=== PATIENT | female | born 1985 | race Two or more races ===

== ENCOUNTER 2018-08-13 15:00 | Inpatient (IN) | payer OTHER ==
[~2018-08-13] VITALS: Ht 157.5 cm; Wt 108.0 kg
[2018-08-16] MEDS ORDERED: PRENATAL ONE T1 EACH PO (04:28)
[2018-08-16] MEDS ORDERED: FOLIC ACID1 MG PO (04:29)
== END 2018-08-18 13:21 | disposition home or self-care (01) | DRG 807 ==
LOC: LDR 08-16 07:18 → OB/GYN 08-16 07:18
PROVIDERS: ADMIT Obstetrics & Gynecology
PROC: 10E0XZZ Delivery of Products of Conception, External Approach (ICD-10-PCS; principal; 2018-08-16)
PROC: 4A1HXCZ Monitoring of Products of Conception, Cardiac Rate, External Approach (ICD-10-PCS; 2018-08-16)
PROC: 0UQMXZZ Repair Vulva, External Approach (ICD-10-PCS; 2018-08-16)
PROC: 4A033R1 Measurement of Arterial Saturation, Peripheral, Percutaneous Approach (ICD-10-PCS; 2018-08-16)
DX: O71.82 Other specified trauma to perineum and vulva (principal); Z37.0 Single live birth; O24.410 Gestational diabetes mellitus in pregnancy, diet controlled; Z3A.37 37 weeks gestation of pregnancy

== ENCOUNTER 2018-08-16 03:02 | Outpatient (CLI) | payer OTHER ==
[2018-08-16] MEDS ORDERED: PRENATAL ONE T1 EACH PO (04:28)
[2018-08-16] MEDS ORDERED: FOLIC ACID1 MG PO (04:29)
== END 2018-08-16 07:17 | disposition still patient (30) ==
LOC: OBS/DEL 03:02
DX: O47.1 False labor at or after 37 completed weeks of gestation (principal); Z34.03 Encounter for supervision of normal first pregnancy, third trimester

== ENCOUNTER 2018-08-22 15:01 | Outpatient (CLI) | payer OTHER ==
[~2018-08-22 15:01] MED LIST: FOLIC ACID1 MG PO; PRENATAL ONE T1 EACH PO
== END 2018-08-22 15:09 | disposition home or self-care (01) ==
LOC: RAD 15:01
DX: S69.92XA Unspecified injury of left wrist, hand and finger(s), initial encounter (principal)

== ENCOUNTER 2021-09-22 09:21 | Outpatient (CLI) | payer OTHER | END 2021-09-22 10:56 | disposition home or self-care (01) | LOC: PRENATAL 09:21 | PROVIDERS: ATTEND Obstetrics & Gynecology Maternal & Fetal Medicine | DX: O35.0XX0 Maternal care for (suspected) central nervous system malformation in fetus, not applicable or unspecified (principal); O09.212 Supervision of pregnancy with history of pre-term labor, second trimester; Z3A.21 21 weeks gestation of pregnancy; O98.52 Other viral diseases complicating childbirth; A92.5 Zika virus disease; O44.02 Complete placenta previa NOS or without hemorrhage, second trimester; Z37.9 Outcome of delivery, unspecified; Z79.84 Long term (current) use of oral hypoglycemic drugs; O24.419 Gestational diabetes mellitus in pregnancy, unspecified control; O99.210 Obesity complicating pregnancy, unspecified trimester; O26.852 Spotting complicating pregnancy, second trimester ==

== ENCOUNTER 2021-11-17 08:37 | Outpatient (CLI) | payer OTHER | END 2021-11-17 09:45 | disposition home or self-care (01) | LOC: PRENATAL 08:37 | PROVIDERS: ATTEND Obstetrics & Gynecology Maternal & Fetal Medicine | DX: O26.849 Uterine size-date discrepancy, unspecified trimester (principal); O24.419 Gestational diabetes mellitus in pregnancy, unspecified control; O99.210 Obesity complicating pregnancy, unspecified trimester; Z3A.28 28 weeks gestation of pregnancy; O09.219 Supervision of pregnancy with history of pre-term labor, unspecified trimester; O44.00 Complete placenta previa NOS or without hemorrhage, unspecified trimester ==

== ENCOUNTER 2021-12-10 22:32 | Inpatient (IN) | payer OTHER ==
[~2021-12-10] VITALS: Ht 157.5 cm; Wt 112.0 kg
[2021-12-10] MEDS ORDERED: GLUMETZA500 MG PO (23:05)
[2021-12-10] MEDS ORDERED: ASA81 MG PO (23:09)
== END 2021-12-13 11:56 | disposition home or self-care (01) | DRG 833 ==
LOC: LDR 22:32 → OB/GYN 12-11 11:33
PROVIDERS: ADMIT Obstetrics & Gynecology; ATTEND Obstetrics & Gynecology
PROC: BY4FZZZ Ultrasonography of Third Trimester, Single Fetus (ICD-10-PCS; principal; 2021-12-10)
PROC: 4A1HXCZ Monitoring of Products of Conception, Cardiac Rate, External Approach (ICD-10-PCS; 2021-12-10)
DX: O44.53 Low lying placenta with hemorrhage, third trimester (principal); Z3A.32 32 weeks gestation of pregnancy; Z20.822 Contact with and (suspected) exposure to COVID-19

== ENCOUNTER 2022-01-03 14:14 | Outpatient (CLI) | payer OTHER ==
[~2022-01-03 14:14] MED LIST changes: +ASA81 MG PO; +GLUMETZA500 MG PO
== END 2022-01-03 15:25 | disposition home or self-care (01) ==
LOC: PRENATAL 14:14
PROVIDERS: ATTEND Obstetrics & Gynecology Maternal & Fetal Medicine
DX: O26.849 Uterine size-date discrepancy, unspecified trimester (principal); O09.219 Supervision of pregnancy with history of pre-term labor, unspecified trimester; Z3A.35 35 weeks gestation of pregnancy; O24.419 Gestational diabetes mellitus in pregnancy, unspecified control; O44.00 Complete placenta previa NOS or without hemorrhage, unspecified trimester

== ENCOUNTER 2022-01-11 14:29 | Inpatient (IN) | payer OTHER ==
[~2022-01-11] VITALS: Ht 157.5 cm; Wt 109.8 kg
== END 2022-01-13 11:59 | disposition home or self-care (01) | DRG 783 ==
LOC: LDR 14:29 → OB/GYN 14:29
PROVIDERS: ADMIT Obstetrics & Gynecology; ATTEND Obstetrics & Gynecology
PROC: 0UB70ZZ Excision of Bilateral Fallopian Tubes, Open Approach (ICD-10-PCS; 2022-01-11)
PROC: 4A1HXCZ Monitoring of Products of Conception, Cardiac Rate, External Approach (ICD-10-PCS; 2022-01-11)
PROC: 10D00Z1 Extraction of Products of Conception, Low, Open Approach (ICD-10-PCS; principal; 2022-01-11 14:00)
DX: O44.03 Complete placenta previa NOS or without hemorrhage, third trimester (principal); O60.14X0 Preterm labor third trimester with preterm delivery third trimester, not applicable or unspecified; O45.8X3 Other premature separation of placenta, third trimester; Z3A.36 36 weeks gestation of pregnancy; Z37.0 Single live birth; Z20.822 Contact with and (suspected) exposure to COVID-19; Z30.2 Encounter for sterilization